=== PATIENT | female | born 1985 | race Caucasian/White ===

== ENCOUNTER → 2024-05-08 12:01 | Outpatient (REF) | payer OTHER, SELFPAY | LOC: RAD 12:01 | PROVIDERS: ATTENDING PHYSICIAN Nurse Practitioner Adult Health | DX: M79.674 Pain in right toe(s) (principal); S90.129A Contusion of unspecified lesser toe(s) without damage to nail, initial encounter | CPT/HCPCS: 73630 ==

== ENCOUNTER 2024-11-29 00:24 | Emergency (ER) | payer OTHER, SELFPAY ==
[2024-11-29 00:27] VITALS: BP 140/104
[2024-11-29 02:17] VITALS: BMI 36.6
--- NOTE | 2024-11-29 02:24 | DOWNTIME ---
There was a [employer] Downtime on 11/29/2024 from 0100 to 11/29/2024 at 0215. Downtime documentation of patient's care, including medication administrations, has been reconciled in the electronic record per guidelines. Refer to the
patient's paper chart under the miscellaneous tab to see printed paper medication records and downtime forms.
--- NOTE | 2024-11-29 04:22 | ED.GENMED ---
History of Present Illness
General
Chief Complaint: Headache
Source: patient
Time Seen by Provider: 11/29/24 03:26
Nursing documentation reviewed up to this point in time: agreed with
History of Present Illness
History of Present Illness:
Note:
CHIEF COMPLAINT(S)
Chronic migraines.
HISTORY OF PRESENT ILLNESS
The patient is a 39-year-old female with a long-standing history of migraines. She reported to be working with her primary care physician to manage this condition. Approximately three months ago, her medication was switched to Venlafaxine from
Paroxetine, which has been efficacious in reducing the frequency of her migraines from 8-10 episodes per month to 3-4 episodes per month. However, the remaining migraines are described as severe in intensity. She is currently seeing an
senior electrical engineer, which she notes as highly effective for her condition, though her insurance requires her to try other options first. The patient experienced an issue with her prescription pick-up yesterday due to a system failure, resulting in cold
sweats and a headache currently. She expressed interest in receiving a �headache cocktail� consisting of a non-steroidal anti-inflammatory drug, a corticosteroid, an antiemetic, and Benadryl to mitigate potential side effects.
PAST MEDICAL AND SURGICAL HISTORY
The patient has a history of anxiety. She also mentions experiencing cold sweats associated with her migraines.
MEDICATIONS
The patients current medications include Venlafaxine for migraines and anxiety.
PHYSICAL EXAM
General: Alert, no acute distress.
Skin: Warm, dry.
Head: Normocephalic, atraumatic.
Neck: Supple, trachea midline.
Eye, Ears, Nose, Mouth, and Throat: Oral mucosa moist.
Cardiovascular: Normal peripheral perfusion, No edema.
Respiratory: Respirations are non-labored.
Gastrointestinal: Abdomen nondistended.
Back: Normal range of motion, Normal alignment.
Musculoskeletal: Normal range of motion, normal strength.
Neurological: Alert and oriented to person, place, time, and situation, No focal neurological deficit observed.
Psychiatric: Cooperative, appropriate mood & affect.
PROBLEM LIST
Acute Problems:
- Severe migraines
- Cold sweats associated with migraines
Chronic Problems:
- Anxiety
PLAN
The plan includes providing a headache cocktail to address the patients current migraine, including a non-steroidal anti-inflammatory drug, a corticosteroid, an antiemetic, and Benadryl to mitigate potential side effects.
DIFFERENTIAL DIAGNOSIS
The Differential Diagnosis includes, in no particular order and is not limited to:
1. Chronic migraine
2. Tension-type headache
3. Cluster headache
4. Medication overuse headache
5. Sinus headache
6. Cervicogenic headache
7. Anxiety-induced headache
8. Hormonal headache
9. Hypertension
10. Intracranial pathology (e.g., tumor, aneurysm)
Disposition:
SUMMARY OF ENCOUNTER
A 39-year-old female presented to the emergency department with a headache. The patient has a known history of migraines. She reported that she began feeling better upon arrival in the emergency department. Administration of a headache cocktail in
the emergency department significantly alleviated her symptoms. She has been resting comfortably under direct observation. The patient indicated that this episode is not the worst headache she has ever experienced. The patient is under regular care
with neurology for migraine management and her medications are currently being adjusted.
DISPOSITION
Discharge.
ASSESSMENT
Migraine headache, currently improved after treatment in the emergency department.
EMERGENCY TREATMENTS ADMINISTERED
Headache cocktail.
PLAN
Discharge the patient with instructions to follow up with her neurologist for further migraine management and medication adjustments as needed.
MEDICATION RECONCILIATION
Administered a headache cocktail during the visit.
MEDICAL DECISION MAKING
- Number and Complexity of Problems Addressed: Chronic conditions affecting care [Migraine, anxiety.]
- Risk: Prescription drug management was considered in the form of the headache cocktail administered in the emergency department.
DIAGNOSIS
Migraine, unspecified, improved (ICD-10 G43.909).
Phy Exam
Physical Exam
Physical Exam:
.
Course
Orders/Labs/Results
Orders:
Orders
11/29/24 04:30
Dexamethasone Sod Phosphate [Decadron] 10 mg IV NOW STA
Diphenhydramine [Benadryl] 12.5 mg IV NOW STA
Ketorolac [Toradol] 15 mg IV NOW STA
Metoclopramide [Reglan] 10 mg IV NOW STA
11/29/24 04:53
0.9% Sodium Chloride 1000 ml [Nss] 1,000 ml IV BOLUS
Vital Signs
Initial and Last Documented VS:
Initial Vital Signs
Temp Pulse Resp BP Pulse Ox
97.4 F 74 20 140/104 96
11/29/24 00:27 11/29/24 00:27 11/29/24 00:27 11/29/24 00:27 11/29/24 00:27
Last Documented Vital Signs
Temp Pulse Resp BP Pulse Ox
97.4 F 69 18 127/87 98
11/29/24 00:27 11/29/24 04:50 11/29/24 04:50 11/29/24 04:43 11/29/24 04:50
*Pulse Oximetry
SaO2: 96
Oxygen Mode of Delivery: Room air
Patient hypoxic: no
*Critical Care Note
Total Time (30-74mins, 75-104mins- exclusive of procedures): Not Applicable
ED Attending Note
-
Portions of this chart may have been created with voice recognition software.� Occasional wrong word or��sound alike� substitutions may have occurred due to the inherent limitations of voice recognition software.
Discharge Plan
Departure
Patient Disposition: Home (Routine Discharge)
Date of Disposition: 11/29/24
Time of Disposition: 06:09
Patient with high blood pressure during this ER visit?: Yes
Condition: Good
Discharge Problem:
Headache
Instructions: Migraines (DC), Headache, Adult (DC), BLOOD PRESSURE
Prescriptions:
No Action
Levothyroxine
0.25 mcg PO DAILY
vit no.[id number] [ Vitamin] 1 EACH tablet
1 tab PO DAILY
Prilosec
1 tab PO DAILY
Amoxil:
500 mg PO TID
Calcium Carb/Vit D3/Mag11/Zinc
333 mg PO DAILY
ibuprofen 600 MG tablet
600 mg PO Q4HPRN PRN (Reason: moderate pain/cramps) Qty: 0 0RF
Referrals:
Neil White CRNP [Family Provider, Internal Medicine]
Activity Restrictions/Additional Instructions:
Thank You for choosing [facility].
It was a pleasure meeting you and taking part in your care. We hope for your continued healing and wellness.
Please read discharge instructions in their entirety. However, they are for general education and may not describe your exact diagnosis at discharge. Information on your ER visit and medical conditions were discussed with you along with appropriate
follow up information...
If indicated, please take your medications as instructed and indicated on discharge paperwork.
Please schedule a follow up appointment as directed. Call to schedule an appointment
Please return to the emergency department with ANY change in, persisting, or worsening of symptoms. If any of your symptoms do not improve, or persist, or become more severe within 6-12 hours, please return to the emergency department for further
care.
Please return to the emergency department if you develop a headache, neck pain/stiffness, fever greater than 100.4F, chest pain, shortness of breath, persistent nausea, vomiting, slurred speech, difficulty walking, numbness/tingling, weakness, signs
of infection or any other symptoms that are worrisome to you.
If you have any questions or concerns please do not hesitate to call the Hospital at .
Interventions
Interventions:
*Risk Screen - Suicide Last Done: 11/29/24 00:25
*General Assessment Last Done: 11/29/24 02:18
*Neglect/Abuse Screening Last Done: 11/29/24 00:25
*ED- Fall Risk Assessment Last Done: 11/29/24 02:18
*ED COVID-19 Vaccine History Last Done: 11/29/24 02:18
*ED Influenza Vaccine History Last Done: 11/29/24 02:18
*Nursing Disposition Last Done: 11/29/24 06:18
ED- Neurological Assessment Last Done: 11/29/24 02:19
Discharge Date and Time
Discharge Date/Time: 11/29/24 06:21
Print Language: KENYAN
[2024-11-29 04:43] VITALS: BP 127/87
[2024-11-29] MEDS: BENADRYL 12.5 MG IV (04:44)
[2024-11-29] MEDS: TORADOL 15 MG IV (04:44)
[2024-11-29] MEDS: REGLAN 10 MG IV (04:45)
[2024-11-29] MEDS: DECADRON 10 MG IV (04:45)
[2024-11-29] MEDS: NSS 1000 IV (04:56)
== END 2024-11-29 06:21 | disposition home or self-care (01) ==
LOC: EMR 00:24
PROVIDERS: EMERGENCY PHYSICIAN Student in an Organized Health Care Education/Training Program; FAMILY PHYSICIAN Nurse Practitioner Adult Health
DX: G43.909 Migraine, unspecified, not intractable, without status migrainosus (principal); F41.9 Anxiety disorder, unspecified; Z79.899 Other long term (current) drug therapy
CPT/HCPCS: 96374; 96375; 96361; 99284